=== PATIENT | female | born 1985 | race Caucasian/White ===

== ENCOUNTER 2017-03-24 08:47 | Inpatient (IN) | payer MEDICAID ==
[~2017-03-24] VITALS: Ht 157.5 cm; Wt 75.5 kg
[~2017-03-24 08:47] MED LIST: PREN1TAB49 PO
[2017-03-24 09:02] VITALS: BP 126/74; PULSE 92; RESP 18; Ht 157.5 cm; Wt 75.5 kg
--- NOTE | 2017-03-24 09:21 | TRIAGE ---
OB Triage Datetime Report Generated by CPN: 03/24/2017 09:20 Datetime: 03/24/2017 09:09 Vaginal Exam Dilatation (cms): 3.0 Effacement (%): 50 Station: -2 Exam By: le Vaginal Bleeding: None Cervix, Consistency: Moderate Cervix, Position: Midposition Datetime: 03/24/2017 08:58 Assessment Type: Triage EGA: 39.6 Maternal Assessment Level of Consciousness: Fully Conscious DTR's/Clonus: DTRs 2+; No Clonus Headache: Denies Blurred Vision: No Respiratory Effort: Unlabored; Regular Rhythm; Equal Expansion Breath Sounds, Left: Clear and Equal Breath Sounds, Right: Clear and Equal Nausea/Vomiting: Denies RUQ Epigastric Pain: Denies Lower Extremities Edema: None Degree: None Upper Extremities Edema: None Degree: None Facial Edema: None Fall Risk Assessment History of Falling: (0) No Secondary Diagnosis: (0) No Ambulatory Aid: (0) Bedrest/Nurse Assist IV Therapy: (0) No Gait: (0) Normal/Bedrest/Immobile Mental Status: (0) Oriented to Own Ability Fall Score: 0 Fall Risk Score Definition: No Risk: No action required Datetime: 03/24/2017 08:57 Time of Arrival: 03/24/2017 08:45 Arrived By: Ambulatory Arrived From: Home Chief Complaint: pt here c/o uc's Movement: Present Contractions: Regular Time Contractions Began: 03/24/2017 07:00 Rupture of Membranes: Denies Vaginal Bleeding: None Vaginal Discharge: Denies Recent Sexual Intercouse: Denies Abdominal Trauma: Not Applicable Patient Complaints: Contractions; Cramping; Back Pain Time Provider Notified: 03/24/2017 09:15 Provider Notified: BRICE Initial Plan: EFM/SVE Datetime: 03/24/2017 08:55 Labor Evaluation Monitor Mode: External Heart Rate Monitor Mode: External US
[2017-03-24] MEDS ORDERED: LIDOCAINE 1% (MPF) 30 ML INJ INJ PRN (09:30)
[2017-03-24] MEDS ORDERED: METHYLERGONOVINE 0.2 MG INJ IM PRN ×2 (09:30→19:30)
[2017-03-24] MEDS ORDERED: BUTORPHANOL 2 MG INJ IV PRN (09:30)
[2017-03-24] MEDS ORDERED: CARBOPROST 250 MCG INJ IM PRN ×2 (09:30→19:30)
[2017-03-24] MEDS ORDERED: OXYTOCIN 30 UNITS/LR 500 ML IV PRN ×2 (09:30→19:30)
[2017-03-24] MEDS ORDERED: OXYTOCIN 30 UNITS/LR 500 ML IV SCH ×3 (09:30)
[2017-03-24] MEDS ORDERED: IBUPROFEN 600 MG TAB PO PRN (09:30)
[2017-03-24] MEDS ORDERED: MISOPROSTOL 200 MCG TAB PR PRN ×2 (09:30→19:30)
[2017-03-24] MEDS ORDERED: LACTATED RINGER'S 1,000 ML IV PRN (09:30)
[2017-03-24 10:21] LABS: BASOPHILS % 0.2 % (0.0-2.0); EOSINOPHILS # 0.2 10^3/ul (0.0-0.5); EOSINOPHILS % 1.9 % (0.0-7.0); HEMATOCRIT 33.9 % (37.0-47.0); HEMOGLOBIN 11.4 g/dl (12.0-16.0); LYMPHOCYTES # 1.5 10^3/ul (0.8-2.9); LYMPHOCYTES % 15.8 % (15.0-51.0); MEAN CORPUSCULAR HEMOGLOBIN 29.2 pg (29.0-33.0); MEAN CORPUSCULAR HGB CONC 33.6 g/dl (32.0-37.0); MEAN CORPUSCULAR VOLUME 86.9 fl (82.0-101.0); MEAN PLATELET VOLUME 10.9 fl (7.4-10.4); MONOCYTE # 0.6 10^3/ul (0.3-0.9); MONOCYTES % 5.8 % (0.0-11.0); NEUTROPHILS % 75.1 % (39.0-77.0); PLATELET COUNT 178 10^3/UL (140-415); RED CELL DISTRIBUTION WIDTH 14.6 % (11.5-14.5); WHITE BLOOD COUNT 9.5 10^3/ul (4.8-10.8)
[2017-03-24] MEDS: LACTATED RINGER'S 1,000 ML IV SCH ×2 (10:24→17:01)
[2017-03-24 10:38] LABS: INR 0.91; PARTIAL THROMBOPLASTIN TIME 25.4 Sec (25.0-35.0); PROTIME 12.2 Sec (12.2-14.2)
--- NOTE | 2017-03-24 14:27 | HP ---
Date/Time of Note Date/Time of Note DATE: 03/24/17 TIME: 14:25 OB - History Hx of Present Free Text/Dictation 39 weeks in labor Care: Good Care Ultrasounds: Normal mid trimester US Obstetrical Complications: None Medical Complications: None Past Family/Social History * Past Medical, Surgical, Family and Obstetric Histories reviewed from chart. OB Admission Exam Vital Signs Vital Signs Vital Signs Date Time Temp Pulse Resp B/P Pulse Ox O2 Delivery O2 Flow Rate FiO2 03/24/17 09:02 98.4 92 18 126/74 97 Room Air Physical Exam HEENT: WNL Heart: Rhythm Normal Lungs: Clear, Equal Abdomen: WNL Extremities: Normal Reflexes: Normal Cervical Dilatation: 4cm Effacement: 50% Station: -1 Membranes: Ruptured Amniotic Fluid: Clear Heart Rate: 130's Accelerations: Accelerations Present Decelerations: No Decelerations Varibility: Marked Contractions on Admission: 6-10 Minutes Apart Last 72 hours Lab Results CBC & BMP 03/24/17 09:55 OB Assessment/Plan Reason for admission: active labor Plan: Expectant Management, Other (augmentation with pitocin) ANOOP NARVAEZ MD Mar 24, 2017 14:27
--- NOTE | 2017-03-24 17:34 | LDN ---
Date/Time of Note Date/Time of Note DATE: 03/24/17 TIME: 17:33 Delivery Summary vag delivery with the aid of a vacum due to bradycardia. No pop offs Assisted Vaginal Delivery: Vacuum Meconium: none Episiotomy: No Anesthesia type: None Estimated blood loss: 350 Sponge & Needle done & correct: Yes All needle counts correct: Yes Any foreign bodies felt in the: No Problems: ANOOP NARVAEZ MD Mar 24, 2017 17:34
[2017-03-24] MEDS ORDERED: OXYCODONE/ACETAMINOPHEN (5/325) TAB PO PRN (18:00)
[2017-03-24 19:00] VITALS: BP 109/63; PULSE 76; RESP 19
[2017-03-24] MEDS ORDERED: ZOLPIDEM 5 MG TAB PO PRN (19:30)
[2017-03-24] MEDS: OXYTOCIN 30 UNITS/LR 500 ML IV SCH ×2 (19:30→22:25)
[2017-03-24] MEDS ORDERED: DIPHENHYDRAMINE 25 MG CAP PO PRN (19:30)
[2017-03-24] MEDS ORDERED: BENZOCAINE 20% 56 ML SPRAY TOP PRN (19:30)
[2017-03-24] MEDS ORDERED: MAGNESIUM HYDROXIDE 30ML CUP PO PRN (19:30)
[2017-03-24] MEDS ORDERED: SENNA/DOCUSATE NA (8.6MG/50MG) TAB PO PRN (19:30)
[2017-03-24] MEDS: LACTATED RINGER'S 1,000 ML IV* SCH (19:30)
[2017-03-24] MEDS ORDERED: LANOLIN 7 GM TUBE TOP PRN (19:30)
[2017-03-24] MEDS ORDERED: HYDROCODONE/APAP (5/325) TAB PO PRN (19:30)
[2017-03-24] MEDS ORDERED: ACETAMINOPHEN 325 MG TAB PO PRN (19:30)
[2017-03-24] MEDS ORDERED: WITCH HAZEL/GLYCERIN PAD PR PRN (19:30)
[2017-03-24 20:10] VITALS: BP 118/69; PULSE 81; RESP 19
[2017-03-24] MEDS: IBUPROFEN 800 MG TAB PO SCH (23:30)
[2017-03-25 00:20] VITALS: BP 107/61; PULSE 76; RESP 19
[2017-03-25] MEDS: LACTATED RINGER'S 1,000 ML IV* SCH ×3 (03:30→19:27)
[2017-03-25 04:05] VITALS: BP 115/56; PULSE 73; RESP 18
[2017-03-25] MEDS: IBUPROFEN 800 MG TAB PO SCH ×4 (05:44→23:48)
[2017-03-25 08:00] VITALS: BP 105/69; PULSE 71; RESP 18
[2017-03-25 09:54] LABS: BASOPHILS % 0.2 % (0.0-2.0); EOSINOPHILS # 0.2 10^3/ul (0.0-0.5); EOSINOPHILS % 1.8 % (0.0-7.0); HEMATOCRIT 36.4 % (37.0-47.0); LYMPHOCYTES # 1.8 10^3/ul (0.8-2.9); MEAN CORPUSCULAR HEMOGLOBIN 28.6 pg (29.0-33.0); MEAN CORPUSCULAR VOLUME 86.7 fl (82.0-101.0); MEAN PLATELET VOLUME 10.9 fl (7.4-10.4); MONOCYTE # 0.9 10^3/ul (0.3-0.9); MONOCYTES % 6.8 % (0.0-11.0); NEUTROPHILS % 76.3 % (39.0-77.0); PLATELET COUNT 198 10^3/UL (140-415); RED CELL DISTRIBUTION WIDTH 14.5 % (11.5-14.5); WHITE BLOOD COUNT 12.5 10^3/ul (4.8-10.8)
[2017-03-25 12:00] VITALS: BP 118/66; PULSE 79; RESP 18
[2017-03-25 16:06] VITALS: BP 109/72; PULSE 82; RESP 20
[2017-03-25 19:45] VITALS: BP 127/62; PULSE 70; RESP 19
--- NOTE | 2017-03-25 21:40 | PN ---
Date/Time of Note Date/Time of Note DATE: 03/25/17 TIME: 21:38 OB Subjective Subjective Subjective Denies any complaint. Vaginal bleeding in the amount of menses. Denies any dizziness or lightheadedness, emulating. Breast-feeding. OB Objective Objective Objective Apneas: Alert and oriented 4. Does not appear to be in any acute distress. breasts: No evidence of engorgement or mastitis or fissure Abdomen: Soft, fundal height at the level of umbilicus and firm. No fundal tenderness Extremities: No calf tenderness, no click no edema Hematology - 72 Hrs Test 03/24/17 09:55 03/25/17 09:20 White Blood Count 9.510^3/ul (4.8-10.8) 12.510^3/ul (4.8-10.8) #H Red Blood Count 3.9010^6/ul (4.20-5.40) L 4.2010^6/ul (4.20-5.40) Hemoglobin 11.4g/dl (12.0-16.0) L 12.0g/dl (12.0-16.0) Hematocrit 33.9% (37.0-47.0) L 36.4% (37.0-47.0) L Mean Corpuscular Volume 86.9fl (82.0-101.0) 86.7fl (82.0-101.0) Mean Corpuscular Hemoglobin 29.2pg (29.0-33.0) 28.6pg (29.0-33.0) L Mean Corpuscular Hemoglobin Concent 33.6g/dl (32.0-37.0) 33.0g/dl (32.0-37.0) Red Cell Distribution Width 14.6% (11.5-14.5) H 14.5% (11.5-14.5) Platelet Count 79730^3/UL (140-415) 12643^3/UL (140-415) Mean Platelet Volume 10.9fl (7.4-10.4) H 10.9fl (7.4-10.4) H Neutrophils % 75.1% (39.0-77.0) 76.3% (39.0-77.0) Lymphocytes % 15.8% (15.0-51.0) 14.0% (15.0-51.0) L Monocytes % 5.8% (0.0-11.0) 6.8% (0.0-11.0) Eosinophils % 1.9% (0.0-7.0) 1.8% (0.0-7.0) Basophils % 0.2% (0.0-2.0) 0.2% (0.0-2.0) Nucleated Red Blood Cells % 0.0/100WBC (0.0-0.0) 0.0/100WBC (0.0-0.0) Neutrophils # (Manual) 7.110^3/ul (1.7-7.5) 9.610^3/ul (1.7-7.5) H Lymphocytes # 1.510^3/ul (0.8-2.9) 1.810^3/ul (0.8-2.9) Monocytes # 0.610^3/ul (0.3-0.9) 0.910^3/ul (0.3-0.9) Eosinophils # 0.210^3/ul (0.0-0.5) 0.210^3/ul (0.0-0.5) Basophils # 0.010^3/ul (0.0-0.1) 0.010^3/ul (0.0-0.1) Nucleated Red Blood Cells # 0.010^3/ul (0.0-0.0) 0.010^3/ul (0.0-0.0) OB Assessment/Plan Other Assessment: day #1 Status post vacuum-assisted vaginal delivery Doing well Continue routine care Anticipate DC home tomorrow REGINA HOLM MD Mar 25, 2017 21:40
[2017-03-26 03:40] VITALS: BP 115/63; PULSE 78; RESP 19
[2017-03-26] MEDS: IBUPROFEN 800 MG TAB PO SCH ×3 (05:38→18:00)
[2017-03-26 07:50] VITALS: BP 116/69; PULSE 72; RESP 20
[2017-03-26] MEDS ORDERED: VARICELLA VACCINE LIVE/PF 1,350 UNIT/0.5 ML ML SC* ONE (09:00)
[2017-03-26] MEDS ORDERED: MEASLES,MUMPS,RUBELLA VACCINE INJ SC* ONE (09:00)
[2017-03-26] MEDS ORDERED: DIPHTH/TET/ACEL PERTUSS (ADULT) 0.5 ML VIAL IM* ONE (09:00)
--- NOTE | 2017-03-26 12:57 | DS ---
Date/Time of Note Date/Time of Note DATE: 03/26/17 TIME: 12:56 Discharge Summary Admission/Discharge Info Admit Date/Time Mar 24, 2017 at 09:15 Discharge Date/Time Discharge Diagnosis term preg Patient Condition: Stable Hospital Course unremarkable Home Meds Reported Medications Vits W-Ca,Fe,Fa(<1MG) () 1 Tab Tablet, 1 TAB PO DAILY 10/24/12 Primary Care Provider Care Physician No Primary ANOOP NARVAEZ MD Mar 26, 2017 12:57
[2017-03-26 16:00] VITALS: BP 128/68; PULSE 68; RESP 20
== END 2017-03-26 18:50 | disposition home or self-care (01) | DRG 775 ==
LOC: L-D 08:47 → OBT 08:47 → L-D 09:15 → OBT 09:19 → L-D 16:07 → PP1 18:54
PROVIDERS: ADMIT Obstetrics & Gynecology; ATTEND Obstetrics & Gynecology
PROC: 10D07Z6 Extraction of Products of Conception, Vacuum, Via Natural or Artificial Opening (ICD-10-PCS; principal; 2017-03-24)
PROC: 3E033VJ Introduction of Other Hormone into Peripheral Vein, Percutaneous Approach (ICD-10-PCS; 2017-03-24)
DX: O76 Abnormality in fetal heart rate and rhythm complicating labor and delivery (principal); Z37.0 Single live birth; Z3A.39 39 weeks gestation of pregnancy
CPT/HCPCS: 36415; 85025; 85610; 85730; 86592; 86900; 86901; 87340; 90715; 90716; 99464; A4310; G0463; J0595; J2590; J7120